=== PATIENT | female | born 1970 | race Caucasian/White ===

== ENCOUNTER 2021-11-10 17:36 | Inpatient (IN) ==
[2021-11-10] MEDS ORDERED: ONDANSETRON INJ 2 MG/ML 2 ML VIAL IV STA (17:51)
--- NOTE | 2021-11-10 17:51 | ED Triage Note ---
Date of Service November 10, 2021 History of Present Illness This patient was briefly evaluated while in triage. An abbreviated physical exam was performed. This patient is a 51-year-old Female with past medical history of mental health illness, allergies, asthma who presents to the ED for evaluation of "lung pain in my left lung". Pt. did have positive Covid-19 test at [facility] earlier today. Pt. having fever, sore throat, nausea, body aches, generalized illness. Pt. reports was positive Covid-19 10/02/2021. Had CXR and covid-[address] [facility]. Concern for worsening Left lung pain as the day has gone on. Physical Exam VITALS: Vitals are noted on the nurse's note and reviewed by myself. GENERAL: This is a 51 year old white female, in no acute distress, nondiaphoretic, well-developed well-nourished. SKIN: No obvious rashes, edema, erythema HEAD: Normocephalic atraumatic. EYES: Conjunctivae without injection, sclerae without icterus. NECK: No JVD. LUNGS: No retractions or accessory muscle use. MUSCULOSKELETAL: Normal gait. NEURO: Patient was alert and oriented to person place and time. No focal neurological deficits. Initial orders for labs and / or imaging were placed and patient was placed in the waiting area until a bed is available. Please see further documentation for the full ED course. MDM / Impression Impression Impression: Hypoxia, Pneumonia : Pneumonia Qualifiers: Pneumonia type: due to unspecified organism Laterality: left Lung location: lower lobe of lung Qualified Code(s): J18.9 - Pneumonia, unspecified organism
[2021-11-10] MEDS ORDERED: SODIUM CHLORIDE 0.9% 1000ML 1,000 ML IV SCH (18:00)
[2021-11-10 18:36] LABS: Hematocrit (blood only) 40.4 % (34.1-44.9); Hemoglobin 13.2 g/dl (12.0-16.0); Mean Corpuscular Hemoglobin 29.5 pg (25.0-34.0); Mean Corpuscular Hgb Conc 32.7 g/dL (32.0-36.0); Mean Corpuscular Volume 90.4 fL (80.0-100.0); Mean Platelet Volume 8.7 fL (9.4-12.3); Platelet Count 204 K/uL (130-400); RDW Coefficient of Variation 14.6 % (11.5-14.5); RDW Standard Deviation 48.2 fL (36.4-46.3); Red Blood Count 4.47 M/uL (3.93-5.22); White Blood Count 17.68 K/ul (4.8-10.8)
[2021-11-10 18:53] LABS: Basophils # (auto) 0.02 K/uL (0-0.2); Basophils % (auto) 0.1 %; Immature Granulocytes # (auto) 0.15 K/uL (0.00-0.02); Immature Granulocytes % (auto) 0.8 %; Monocytes # (auto) 0.79 K/uL (0.24-0.82); Monocytes % (auto) 4.5 %; Neutrophils # (auto) 16.02 K/uL (1.4-6.5); Neutrophils % (auto) 90.6 %
[2021-11-10 18:56] LABS: INR 1.1 (0.9-1.1); Partial Thromboplastin Time 27.7 Seconds (21.0-31.0); Prothrombin Time 11.5 Seconds (9.0-12.0)
[2021-11-10 19:07] LABS: Albumin Globulin Ratio 1.7 (0.9-2); BUN Creatinine Ratio 14.4 (10-20); Bilirubin,Total 0.9 mg/dl (0.2-1.0); Calcium 9.2 mg/dl (8.5-10.1); Creatinine Clr Calc Pharmacy 67.9 ml/min; Est GFR (African American) 72.6 ml/min; Est GFR (Non-African American) 62.6 ml/min; Globulin 2.4 gm/dl (2.5-4.0); Potassium 4.1 mmol/L (3.5-5.1); Total Protein 6.4 gm/dl (6.0-8.3)
[2021-11-10 19:08] LABS: Troponin I High Sensitivity 4.2 pg/ml (0-14)
--- NOTE | 2021-11-10 19:32 | Emergency Department Note ---
History of Present Illness General Chief Complaint: Flu Like Symptoms Stated Complaint: PAIN IN LEFT LUNG, FEVER, HEADACHE, NAUSEA Time Seen by Provider: 11/10/21 19:20 History of Present Illness Provider Complaint: + fever, + cough, + rhinorrhea and + nasal congestion Onset (ago): 1 day(s) Duration: + progressively worsening Severity: moderate Maximum Pain Intensity: 8 Current Pain Intensity: 8 Relieved By: + nothing Exacerbated By: + nothing Description of mucous: + yellow; no bloody Able to tolerate fluids by mouth: Yes Associated symptoms: + fever, + myalgias, + rhinorrhea, + nasal congestion, + cough, + chest pain and + shortness of breath; no stiff neck, no nausea or no dysuria HPI Narrative: Patient reports she went to [place] emergency department where they did a COVID swab and told her she was positive and a chest x-ray told her was negative and then sent her home. She states she does not feel any better so she came to this emergency department. Patient states she had COVID 5 weeks ago so is unsure how she got COVID again so quickly. Home Medications Medication Instructions Recorded Confirmed Type Cbd Extendend Release Tablet 10 mg PO QAM 11/10/21 11/10/21 History albuterol sulfate 90 mcg/actuation 2 puff inhalation Q6 PRN as 11/10/21 11/10/21 History aerosol inhaler directed beclomethasone dipropionate 80 2 inh inhalation BID 11/10/21 11/10/21 History mcg/actuation HFA breath activated aerosol (Qvar RediHaler) benralizumab 30 mg/mL subcutaneous 30 mg subcut .EVERY 2 MONTHS 11/10/21 11/10/21 History syringe (Fasenra) cyclosporine 0.05 % eye drops 1 drp ophthalmic (eye) BID 11/10/21 11/10/21 History (Restasis MultiDose) duloxetine 30 mg capsule,delayed 30 mg PO BID 11/10/21 11/10/21 History release epinephrine 0.3 mg/0.3 mL 0.3 ml IM UD PRN Allergic Reaction 11/10/21 11/10/21 History injection, auto-injector fexofenadine 180 mg tablet 180 mg PO QAM 11/10/21 11/10/21 History (Pilar Allergy) fluticasone 500 mcg-salmeterol 50 1 inh inhalation BID 11/10/21 11/10/21 History mcg/dose blistr powdr for inhalation (Advair Diskus) fluticasone propionate 50 2 spray intranasal DAILY 11/10/21 11/10/21 History mcg/actuation nasal spray,suspension gabapentin 100 mg capsule 300 mg PO HS 11/10/21 11/10/21 History ipratropium 0.5 mg-albuterol 3 mg 3 ml inhalation Q4 PRN as directed 11/10/21 11/10/21 History (2.5 mg base)/3 mL nebulization soln lamotrigine 25 mg tablet (Lamictal) 25 mg PO HS 11/10/21 11/10/21 History linaclotide 290 mcg capsule 290 mcg PO QAM 11/10/21 11/10/21 History (Linzess) lisdexamfetamine 60 mg capsule 60 mg PO QAM 11/10/21 11/10/21 History (Vyvanse) lisinopril 10 mg tablet 10 mg PO QAM 11/10/21 11/10/21 History lurasidone 80 mg tablet (Latuda) 80 mg PO HS 11/10/21 11/10/21 History melatonin 10 mg tablet,extended 10 mg PO HS 11/10/21 11/10/21 History release montelukast 10 mg tablet 10 mg PO HS 11/10/21 11/10/21 History (Singulair) pantoprazole 40 mg granules 40 mg PO BID 11/10/21 11/10/21 History delayed-release for susp in packet (Protonix) pravastatin 40 mg tablet 40 mg PO HS 11/10/21 11/10/21 History sumatriptan succinate 50 mg tablet 50 mg PO UD PRN Migraine Headache 11/10/21 11/10/21 History tiotropium bromide 2.5 2 puff inhalation QAM 11/10/21 11/10/21 History mcg/actuation mist for inhalation (Spiriva Respimat) topiramate 25 mg tablet (Topamax) 25 mg PO AMHS 11/10/21 11/10/21 History Allergies Allergy/AdvReac Type Severity Reaction Status Date / Time Sulfa (Sulfonamide Allergy Unknown hands and Verified 11/10/21 23:41 Antibiotics) feet get itchy Past Med/Surg History Medical History CKD (chronic kidney disease) No pertinent family history Surgical History No pertinent past surgical history Social History Smoking Status: Never smoker Feels Safe at Home: Yes Review of Systems A total of 10 systems reviewed and were otherwise negative Physical Exam Vital Signs: Vital Signs - 24 hr 11/10/21 17:48 11/10/21 17:37 11/10/21 19:37 Temperature 36.7 C Temperature Source Temporal Artery Sc an Pulse Rate 96 H Pulse Rate [Apical ] 104 H 95 H Pulse Rhythm Pulse Rhythm [Apic al] Regular Regular Pulse Strength [Ap ical] Normal Normal Respiratory Rate 20 20 20 Respiratory Effort / Characteristics Non-Labored Non-Labored Respiratory Depth Normal Normal Normal Respiratory Patter n Regular Regular Blood Pressure 118/83 Blood Pressure [Ri ght Arm] 94/54 L 94/54 L Blood Pressure Shanna n 94 Blood Pressure Shanna n [Right Arm] 67 67 Blood Pressure Pos ition Sitting Blood Pressure Pos ition [Right Arm] Left Lateral Left Lateral Pulse Oximetry 98 92 92 Oxygen Delivery Me thod Room Air Room Air Room Air Oxygen Flow Rate Sepsis Recent Feve r Within 48 Hours Yes Sepsis New/Unexpla ined Change in Men raymundo Status No Sepsis Action Take n by Nursing No Action Required 11/10/21 17:51 11/10/21 22:40 11/10/21 23:12 Temperature 38.9 C H Temperature Source Temporal Artery Sc an Pulse Rate 95 H Pulse Rate [Apical ] 101 H 95 H Pulse Rhythm Regular Pulse Rhythm [Apic al] Regular Pulse Strength [Ap ical] Normal Respiratory Rate 22 22 22 Respiratory Effort / Characteristics Non-Labored Respiratory Depth Normal Normal Respiratory Patter n Regular Blood Pressure Blood Pressure [Ri ght Arm] 92/53 L Blood Pressure Shanna n Blood Pressure Shanna n [Right Arm] 66 Blood Pressure Pos ition Blood Pressure Pos ition [Right Arm] Pulse Oximetry 95 88 L 96 Oxygen Delivery Me thod Room Air Room Air Nasal Cannula Oxygen Flow Rate 2 Sepsis Recent Feve r Within 48 Hours Sepsis New/Unexpla ined Change in Men raymundo Status Sepsis Action Take n by Nursing 11/10/21 23:21 Temperature Temperature Source Pulse Rate Pulse Rate [Apical ] Pulse Rhythm Pulse Rhythm [Apic al] Pulse Strength [Ap ical] Respiratory Rate 18 Respiratory Effort / Characteristics Non-Labored Sponta neous Respiratory Depth Respiratory Patter n Blood Pressure Blood Pressure [Ri ght Arm] Blood Pressure Shanna n Blood Pressure Shanna n [Right Arm] Blood Pressure Pos ition Blood Pressure Pos ition [Right Arm] Pulse Oximetry Oxygen Delivery Me thod Nasal Cannula Oxygen Flow Rate Sepsis Recent Feve r Within 48 Hours Sepsis New/Unexpla ined Change in Men raymundo Status Sepsis Action Take n by Nursing Physical Exam: Physical Exam GENERAL: She is oriented to person, place, and time. She appears well-developed and well-nourished. She does not appear distressed. HENT: Exam performed. -Head: Normocephalic and atraumatic. -Right Ear: External ear normal. No mastoid tenderness. -Left Ear: External ear normal. No mastoid tenderness. -Mouth/Throat: The oropharynx is clear and moist. No trismus in the jaw. No dental abscesses or uvula swelling. No oropharyngeal exudate or tonsillar abscesses. EYES: Conjunctivae and EOM are normal. Pupils are equal, round, and reactive to light. Right eye exhibits no discharge. Left eye exhibits no discharge. No scleral icterus. NECK: Normal range of motion. Neck supple. No JVD present. No spinous process tenderness present. No carotid bruit present. No rigidity. No tracheal deviation and normal range of motion present. No Brudzinski's sign and no Kernig's sign noted. CV: Normal rate, regular rhythm, normal heart sounds and intact distal pulses. There is no peripheral edema. Palpable radial pulses bue. PULM/CHEST: Effort normal and breath sounds normal. No respiratory distress. No stridor. She has no wheezes. She has no rales. -Chest Wall: She exhibits no tenderness. ABD: The abdomen is soft. Bowel sounds are normal. She has no distension. No mass is present. There is no tenderness. There is no rebound, no guarding, no Grady's sign and no tenderness at McBurney's point. Rovsig negative MUSC/SKEL: Normal range of motion. There is no peripheral edema, tenderness or deformity. LYMPH: No cervical adenopathy. NEURO: She is alert and oriented to person, place, and time. She has normal strength. No cranial nerve deficit or sensory deficit. Coordination and gait normal. GCS eye subscore is 4. GCS verbal subscore is 5. GCS motor subscore is 6. Cerebellar tests wnl. SKIN: Skin is warm and dry. She is not diaphoretic. PSYCH: She has a normal mood and affect. Behavior is normal. Judgment and thought content normal. Course Course 1919: The patient was evaluated in room C1. A complete history and physical exam was performed Cardiac monitoring: An order was placed for continuous cardiac monitoring. The monitor shows a rate of 90 with sinus rhythm 2245: Nursing for me that the patient's oxygen saturations are dropping. The patient was found to be febrile hypotensive and hypoxic. 2 L nasal cannula supplied the patient which improved her oxygen saturation. Repeat fluid bolus ordered for the patient. Patient's COVID PCR is negative. Leukocytosis 17. Imaging shows a left sided pneumonia. Antibiotics first Started on the patient. [facility]. Administered Medications Discontinued Medications Sodium Chloride (Nss 1000ml) 1,000 mls @ 999 mls/hr IV .Q1H1M TONNY Stop: 11/10/21 19:00 Last Infusion: 11/10/21 21:09 Dose: 0 mls/hr Documented By: Admin: 11/10/21 20:04 Dose: 999 mls/hr Documented By: MELISSA Sodium Chloride (Nss 1000ml) 1,000 mls @ 999 mls/hr IV .Q1H1M ONE Stop: 11/10/21 20:40 Last Infusion: 11/10/21 21:09 Dose: 0 mls/hr Documented By: Admin: 11/10/21 20:04 Dose: 999 mls/hr Documented By: MELISSA Sodium Chloride (Nss 1000ml) 500 mls @ 999 mls/hr IV .Q31M ONE Stop: 11/10/21 23:24 Last Admin: 11/10/21 23:16 Dose: 999 mls/hr Documented By: ERICK Ioversol (Optiray 300 500ml) 77 ml IV ONCE ONE Stop: 11/10/21 19:46 Last Admin: 11/10/21 19:45 Dose: 77 ml Documented By: MAC Ipratropium Fleming (Ipratropium Fleming Neb Soln 0.02% 2.5 Ml Vial) 0.5 mg INH NOW STA Stop: 11/10/21 23:04 Last Admin: 11/10/21 23:21 Dose: 0.5 mg Documented By: BRB Levalbuterol HCl (Levalbuterol 1.25mg/0.5ml Neb) 1.25 mg INH NOW STA Stop: 11/10/21 23:04 Last Admin: 11/10/21 23:21 Dose: 1.25 mg Documented By: BRB Ondansetron HCl (Ondansetron Inj 2 Mg/Ml 2 Ml Vial) 4 mg IV NOW STA Stop: 11/10/21 17:52 Last Admin: 11/10/21 20:05 Dose: 4 mg Documented By: RDD Ondansetron HCl (Ondansetron Inj 2 Mg/Ml 2 Ml Vial) Confirm Administered Dose 4 mg .ROUTE .STK-MED ONE Stop: 11/10/21 20:06 Last Admin: 11/10/21 20:33 Dose: Not Given Documented By: RDMyrna Medical Decision Making Laboratory Data Result diagrams: 11/10/21 18:20 11/10/21 18:20 Lab Results 11/10/21 11/10/21 11/10/21 Range/Units 18:20 18:20 18:20 WBC 17.68 H (4.8-10.8) K/ul RBC 4.47 (3.93-5.22) M/uL Hgb 13.2 (12.0-16.0) g/dl Hct 40.4 (34.1-44.9) % MCV 90.4 (80.0-100.0) fL MCH 29.5 (25.0-34.0) pg MCHC 32.7 (32.0-36.0) g/dL RDW Std Deviation 48.2 H (36.4-46.3) fL RDW Coeff of Mariia 14.6 H (11.5-14.5) % Plt Count 204 (130-400) K/uL MPV 8.7 L (9.4-12.3) fL Immature Gran % (Auto) 0.8 % Neut % (Auto) 90.6 % Lymph % (Auto) 4.0 % [place] % (Auto) 4.5 % Eos % (Auto) 0.0 % Baso % (Auto) 0.1 % Neut # (Auto) 16.02 H (1.4-6.5) K/uL Lymph # (Auto) 0.70 L (1.2-3.4) K/uL [place] # (Auto) 0.79 (0.24-0.82) K/uL Eos # (Auto) 0.00 (0-0.50) K/uL Baso # (Auto) 0.02 (0-0.2) K/uL Immature Gran # (Auto) 0.15 H (0.00-0.02) K/uL PT 11.5 (9.0-12.0) Seconds INR 1.1 (0.9-1.1) APTT 27.7 (21.0-31.0) Seconds PTT Ratio 1.0 Sodium 135 L (136-145) mmol/L Potassium 4.1 (3.5-5.1) mmol/L Chloride 103 (98-107) mmol/L Carbon Dioxide 24 (21-32) mmol/L Anion Gap 8 (3-11) BUN 15 (6-23) mg/dl Creatinine 1.04 (0.6-1.2) mg/dl Est Cr Clr Drug Dosing 67.9 ml/min Est GFR ( Amer) 72.6 ml/min Est GFR (Non-Af Amer) 62.6 ml/min BUN/Creatinine Ratio 14.4 (10-20) Glucose 122 H (70-99(Fasting)) mg/dl Calcium 9.2 (8.5-10.1) mg/dl Total Bilirubin 0.9 (0.2-1.0) mg/dl AST 17 (13-39) U/L ALT 16 (7-52) U/L Alkaline Phosphatase 52 (34-104) U/L Troponin I High Sens 4.2 (0-14) pg/ml Total Protein 6.4 (6.0-8.3) gm/dl Albumin 4.0 (3.4-5.0) gm/dl Globulin 2.4 L (2.5-4.0) gm/dl Albumin/Globulin Ratio 1.7 (0.9-2) SARS-CoV-2 (PCR) (Negative) 11/10/21 Range/Units 21:00 WBC (4.8-10.8) K/ul RBC (3.93-5.22) M/uL Hgb (12.0-16.0) g/dl Hct (34.1-44.9) % MCV (80.0-100.0) fL MCH (25.0-34.0) pg MCHC (32.0-36.0) g/dL RDW Std Deviation (36.4-46.3) fL RDW Coeff of Mariia (11.5-14.5) % Plt Count (130-400) K/uL MPV (9.4-12.3) fL Immature Gran % (Auto) % Neut % (Auto) % Lymph % (Auto) % [place] % (Auto) % Eos % (Auto) % Baso % (Auto) % Neut # (Auto) (1.4-6.5) K/uL Lymph # (Auto) (1.2-3.4) K/uL [place] # (Auto) (0.24-0.82) K/uL Eos # (Auto) (0-0.50) K/uL Baso # (Auto) (0-0.2) K/uL Immature Gran # (Auto) (0.00-0.02) K/uL PT (9.0-12.0) Seconds INR (0.9-1.1) APTT (21.0-31.0) Seconds PTT Ratio Sodium (136-145) mmol/L Potassium (3.5-5.1) mmol/L Chloride (98-107) mmol/L Carbon Dioxide (21-32) mmol/L Anion Gap (3-11) BUN (6-23) mg/dl Creatinine (0.6-1.2) mg/dl Est Cr Clr Drug Dosing ml/min Est GFR ( Amer) ml/min Est GFR (Non-Af Amer) ml/min BUN/Creatinine Ratio (10-20) Glucose (70-99(Fasting)) mg/dl Calcium (8.5-10.1) mg/dl Total Bilirubin (0.2-1.0) mg/dl AST (13-39) U/L ALT (7-52) U/L Alkaline Phosphatase (34-104) U/L Troponin I High Sens (0-14) pg/ml Total Protein (6.0-8.3) gm/dl Albumin (3.4-5.0) gm/dl Globulin (2.5-4.0) gm/dl Albumin/Globulin Ratio (0.9-2) SARS-CoV-2 (PCR) NEGATIVE (Negative) Imaging Data Radiologist's Impression: Chest CTA 11/10/21 17:51 CT ANGIOGRAPHY OF THE CHEST, PULMONARY EMBOLUS PROTOCOL CLINICAL HISTORY: Covid-19, left side chest pain, shortness of breath COMPARISON STUDY: No previous studies for comparison. TECHNIQUE: Following IV administration of 77 mL of Optiray, helical axial images of the chest were obtained utilizing the pulmonary embolus protocol. Maximal i ntensity projections and sagittal and coronal reformats were viewed on an independent 3D workstation. IV contrast was administered without complication. Automated exposure control was utilized for the study. A dose lowering technique was utilized adhering to the principles of ALARA. CT DOSE: 525.52 mGy.cm FINDINGS: No pulmonary emboli are identified. There is no thoracic aortic dissection. Size of the heart is normal. There is no pericardial effusion. Note is made of dense left lower lobe consolidation. There is mild left lower lobe volume loss. No central obstructing mass is identified. No cavitation is present. There is no associated pleural effusion. Mild airspace opacity within the lingula is also noted. Right lung is clear. No acute fracture or suspicious lesion within the visualized bony thorax. Size of the spleen is at the upper limits of normal. IMPRESSION: 1. No pulmonary emboli identified. 2. Dense left lower lobe consolidation with mild lower lobe volume loss. This is highly suggestive of pneumonia. Mild airspace opacity within the lingula. Radiographic follow-up to ensure resolution is recommended. ACT 112: Negative or not required by law. Electronically signed by: Ryan Grimes M.D. 11/10/2021 8:16 PM ECG Data Indication: SOB/dyspnea Rate (beats per minute): 95 Rhythm: normal sinus Findings: no ST depression, no ST elevation or no prolonged QT MDM Narrative 1920: The patient was evaluated in room C1. A complete history and physical exam was performed Cardiac monitoring: An order was placed for continuous cardiac monitoring. The monitor shows a rate of 90 with sinus rhythm 2245: Nursing for me that the patient's oxygen saturations are dropping. The patient was found to be febrile hypotensive and hypoxic. 2 L nasal cannula supplied the patient which improved her oxygen saturation. Repeat fluid bolus ordered for the patient. Patient's COVID PCR is negative. Leukocytosis 17. Imaging shows a left sided pneumonia. Antibiotics first Started on the patient. [facility]. Impression & Plan Hypoxia, Pneumonia Critical Care Time Prolonged Care Time Prolonged Care Time: Yes Total Prolonged Care Time: 50 I have personally spent greater than 50 minutes of critical care time in the direct management of this patient. This includes bedside care, interpretation of diagnostic studies, and testing, discussion with consultants, patient, and family members, and other required patient management activities. This 50 minutes is in excess of all separately billable procedures. Discharge Plan Visit Data Chief Complaint: Flu Like Symptoms Stated Complaint: PAIN IN LEFT LUNG, FEVER, HEADACHE, NAUSEA ED Provider: James Mcgee Discharge Problem: Hypoxia, Pneumonia Patient Disposition: Admitted As Inpatient Forms Stand Alone Forms: My [facility] Prescriptions Prescriptions: No Action topiramate [Topamax] 25 mg tablet 25 mg PO AMHS lamotrigine [Lamictal] 25 mg tablet 25 mg PO HS lisinopril 10 mg tablet 10 mg PO QAM montelukast [Singulair] 10 mg tablet 10 mg PO HS gabapentin 100 mg capsule 300 mg PO HS Vyvanse 60 mg capsule 60 mg PO QAM ipratropium-albuterol 0.5 mg-3 mg(2.5 mg base)/3 mL solution for nebulization 3 ml INHALATION Q4 PRN (Reason: as directed) pravastatin 40 mg tablet 40 mg PO HS fexofenadine [Pilar Allergy] 180 mg tablet 180 mg PO QAM albuterol sulfate 90 mcg/actuation HFA aerosol inhaler 2 puff INHALATION Q6 PRN (Reason: as directed) fluticasone propionate 50 mcg/actuation spray,suspension 2 spray INTRANASAL DAILY pantoprazole [Protonix] [address] for susp in packet 40 mg PO BID Latuda 80 mg tablet 80 mg PO HS Linzess 290 mcg capsule 290 mcg PO QAM Spiriva Respimat 2.5 mcg/actuation mist 2 puff INHALATION QAM Restasis MultiDose 0.05 % drops 1 drp ophthalmic (eye) BID Qvar RediHaler 80 mcg/actuation HFA aerosol breath activated 2 inh INHALATION BID sumatriptan succinate 50 mg tablet 50 mg PO UD PRN (Reason: Migraine Headache) epinephrine 0.3 mg/0.3 mL auto-injector 0.3 ml IM UD PRN (Reason: Allergic Reaction) duloxetine 30 mg capsule,delayed release(DR/EC) 30 mg PO BID fluticasone propion-salmeterol [Advair Diskus] 500-50 mcg/dose Blister With Device 1 inh INHALATION BID Fasenra 30 mg/mL Syringe 30 mg SUBCUT .EVERY 2 MONTHS Rx Instructions: due end of october 2021 melatonin 10 mg Tablet Extended Release 10 mg PO HS Cbd Extendend Release Tablet 10 mg PO QAM Referrals Referrals: Lino Huynh [Primary Care Provider] -
[2021-11-10] MEDS ORDERED: SODIUM CHLORIDE 0.9% 1000ML 1,000 ML IV ONE (19:40)
[2021-11-10] MEDS ORDERED: OPTIRAY 300 500mL IV ONE (19:45)
[2021-11-10] MEDS ORDERED: ONDANSETRON INJ 2 MG/ML 2 ML VIAL ONE (20:05)
--- NOTE | 2021-11-10 20:20 | CT Scan Report ---
CT ANGIOGRAPHY OF THE CHEST, PULMONARY EMBOLUS PROTOCOL CLINICAL HISTORY: Covid-19, left side chest pain, shortness of breath COMPARISON STUDY: No previous studies for comparison. TECHNIQUE: Following IV administration of 77 mL of Optiray, helical axial images of the chest were ob tained utilizing the pulmonary embolus protocol. Maximal intensity projections and sagittal and eve nal reformats were viewed on an independent 3D workstation. IV contrast was administered without com plication. Automated exposure control was utilized for the study. A dose lowering technique was uti lized adhering to the principles of ALARA. CT DOSE: 525.52 mGy.cm FINDINGS: No pulmonary emboli are identified. There is no thoracic aortic dissection. Size of the he art is normal. There is no pericardial effusion. Note is made of dense left lower lobe consolidation. There is mild left lower lobe volume loss. No central obstructing mass is identified. No cavitation is present. There is no associated pleural effusion. Mild airspace opacity within the lingula is also noted. Right lung is clear. No acute fracture or suspicious lesion within the visualized bony thorax . Size of the spleen is at the upper limits of normal. IMPRESSION: 1. No pulmonary emboli identified. 2. Dense left lower lobe consolidation with mild lower lobe volume loss. This is highly suggestive of pneumonia. Mild airspace opacity within the lingula. Radiographic follow-up to ensure resolution is recommended. ACT 112: Negative or not required by law. Electronically signed by: Ryan Grimes M.D. 11/10/2021 8:16 PM
[2021-11-10] MEDS ORDERED: SODIUM CHLORIDE 0.9% 1000ML 500 ML IV ONE (22:54)
[2021-11-10] MEDS ORDERED: AZITHROMYCIN 250 MG TAB PO ONE (22:54)
[2021-11-10] MEDS ORDERED: cefTRIAXone SODIUM 1,000 MG/50 ML BAG IV STA (22:54)
[2021-11-10] MEDS ORDERED: SODIUM CHLORIDE 0.9% 500 ML IV SCH (23:00)
[2021-11-10] MEDS ORDERED: XOPENEX/ATROVENT 1.25mg/0.5MG NEB COMBO NEB STA (23:03)
[2021-11-10] MEDS ORDERED: IPRATROPIUM BROMIDE NEB SOLN 0.02% 2.5 ML VIAL INH STA (23:03)
[2021-11-10] MEDS ORDERED: LEVALBUTEROL 1.25MG/0.5ML NEB INH STA (23:03)
[2021-11-10] MEDS ORDERED: ACETAMINOPHEN 325 MG TAB PO STA (23:35)
[2021-11-11 00:06] LABS: Base Excess VBG -3.8 mEq/L; HCO3 VBG 21 mmol/L; Oxygen Saturation VBG 68.7 %; PCO2 VBG 35 mmHg (38-50); PO2 VBG 36 mmHg; pH VBG 7.38 (7.36-7.41)
[2021-11-11 00:16] LABS: Appearance Urine Clear (Clear); Bacteria Urine Automated Negative (Negative); Bilirubin Urine Negative (Negative); Blood Urine Negative (Negative); Cast Urine Automated 0 /lpf (0-5); Color Urine Yellow; Epithelial Cell Urine Auto >30 /lpf (0-5); Glucose Urine UA Negative (Negative); Ketones Urine Negative (Negative); Leukocyte Esterase Urine Trace (Negative); Nitrite Urine Negative (Negative); Protein Urine Negative (Negative); RBC Urine Automated 0-4 /hpf (0-4); Specific Gravity Urine 1.038 (1.000-1.030); Urobilinogen Urine Negative (Negative); pH Urine 7.5 (4.5-7.5)
[2021-11-11] MEDS: MAGNESIUM SULFATE / D5W 1 GM/100 ML BAG IV SCH ×3 (01:14→05:29)
[2021-11-11] MEDS ORDERED: ACETAMINOPHEN 325 MG TAB PO PRN (01:50)
[2021-11-11] MEDS ORDERED: PROMETHAZINE HCL 12.5 MG in SODIUM CHLORIDE 0.9% 50 ML IV PRN (01:50)
[2021-11-11] MEDS ORDERED: XOPENEX/ATROVENT 1.25mg/0.5MG NEB COMBO NEB PRN (02:12)
[2021-11-11] MEDS ORDERED: IPRATROPIUM BROMIDE NEB SOLN 0.02% 2.5 ML VIAL INH PRN (02:15)
[2021-11-11] MEDS ORDERED: LEVALBUTEROL 1.25MG/0.5ML NEB INH PRN (02:15)
[2021-11-11] MEDS ORDERED: SODIUM CHLORIDE 0.9% 1000ML 1,000 ML IV ONE (04:10)
--- NOTE | 2021-11-11 04:10 | History & Physical Report ---
Date of Service November 11, 2021 Assessment & Plan (1) Severe sepsis: Plan: SIRS plus hypoxemia Secondary to community-acquired pneumonia Bronchial asthma, patient without her usual wheezing symptoms as per her account hypertension, BP on the lower side bipolar disorder, at baseline on multiple medications migraine, headache somewhat worse than usual due to illness as per patient Hyperglycemia rule out DM past tobacco abuse Medical telemetry Supplemental O2 Baseline ABG CS, Ceftriaxone and Doxycycline IVF, hold lisinopril for now until patient BP improved Check hemoglobin A1c DVT prophylaxis. Lovenox subcu Full code Text document was generated using DocDoc voice recognition software. It may contain grammatical or spelling errors. Kindly contact undersigned for clarification of any documentation item in question. Admission and Anticipated Discharge Date Admission Date: November 11, 2021 History of Present Illness Chief Complaint: Worsening cough, shortness of breath Primary Care Provider: Lino Cai of [facility] as per patient History obtained from patient and records. Medical history significant for hypertension, bipolar disorder, bronchial asthma , migraine, past tobacco abuse. Patient started not feeling well yesterday, cough productive of junky sputum associated with headaches. Some shortness of breath with chest pain from coughing. No aspiration. Not as much wheezing as usual asthma attack. Usual migraine headache. Patient not sure about sick contacts due to her work at the [employer]. Patient has not received COVID-19 vaccination but was intending to get her first shot today. O2 sats 80s at 1 point during ER stay. Patient given Ceftriaxone and Azithromycin at the ER for pneumonia. Medical History as above Surgical History : Sinus surgery, tonsillectomy Family History : Hypertension Personal/Social history : Past tobacco abuse, no EtOH intake, [employer] employee Allergies Allergy/AdvReac Type Severity Reaction Status Date / Time Sulfa (Sulfonamide Allergy Unknown hands and Verified 11/10/21 23:41 Antibiotics) feet get itchy Home Medications Medication Instructions Recorded Confirmed Type Cbd Extendend Release Tablet 10 mg PO QAM 11/10/21 11/10/21 History albuterol sulfate 90 mcg/actuation 2 puff inhalation Q6 PRN as 11/10/21 11/10/21 History aerosol inhaler directed beclomethasone dipropionate 80 2 inh inhalation BID 11/10/21 11/10/21 History mcg/actuation HFA breath activated aerosol (Qvar RediHaler) benralizumab 30 mg/mL subcutaneous 30 mg subcut .EVERY 2 MONTHS 11/10/2111/10 History syringe (Fasenra) cyclosporine 0.05 % eye drops 1 drp ophthalmic (eye) BID 11/10/21 11/10/21 History (Restasis MultiDose) duloxetine 30 mg capsule,delayed 30 mg PO BID 11/10/21 11/10/21 History release epinephrine 0.3 mg/0.3 mL 0.3 ml IM UD PRN Allergic Reaction 11/10/21 11/10/21 History injection, auto-injector fexofenadine 180 mg tablet 180 mg PO QAM 11/10/21 11/10/21 History (Pilar Allergy) fluticasone 500 mcg-salmeterol 50 1 inh inhalation BID 11/10/21 11/10/21 History mcg/dose blistr powdr for inhalation (Advair Diskus) fluticasone propionate 50 2 spray intranasal DAILY 11/10/21 11/10/21 History mcg/actuation nasal spray,suspension gabapentin 100 mg capsule 300 mg PO HS 11/10/21 11/10/21 History ipratropium 0.5 mg-albuterol 3 mg 3 ml inhalation Q4 PRN as directed 11/10/21 11/10/21 History (2.5 mg base)/3 mL nebulization soln lamotrigine 25 mg tablet (Lamictal) 25 mg PO HS 11/10/21 11/10/21 History linaclotide 290 mcg capsule 290 mcg PO QAM 11/10/21 11/10/21 History (Linzess) lisdexamfetamine 60 mg capsule 60 mg PO QAM 11/10/21 11/10/21 History (Vyvanse) lisinopril 10 mg tablet 10 mg PO QAM 11/10/21 11/10/21 History lurasidone 80 mg tablet (Latuda) 80 mg PO HS 11/10/21 11/10/21 History melatonin 10 mg tablet,extended 10 mg PO HS 11/10/21 11/10/21 History release montelukast 10 mg tablet 10 mg PO HS 11/10/21 11/10/21 History (Singulair) pantoprazole 40 mg granules 40 mg PO BID 11/10/21 11/10/21 History delayed-release for susp in packet (Protonix) pravastatin 40 mg tablet 40 mg PO HS 11/10/21 11/10/21 History sumatriptan succinate 50 mg tablet 50 mg PO UD PRN Migraine Headache 11/10/21 11/10/21 History tiotropium bromide 2.5 2 puff inhalation QAM 11/10/21 11/10/21 History mcg/actuation mist for inhalation (Spiriva Respimat) topiramate 25 mg tablet (Topamax) 25 mg PO AMHS 11/10/21 11/10/21 History Past Med/Surg History Medical History CKD (chronic kidney disease) No pertinent family history Surgical History No pertinent past surgical history Social History Smoking Status: Former smoker Hx Alcohol Use: No Hx Substance Use: No Preferred Language: Danish Communication Ability: Effective 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 Beliefs That Will Affect Care: None and Muslim Muslim Beliefs: orthodox Current Living Situation: Spouse Other Information That Helps Us Care for You: No Feels Safe at Home: Yes Safety Concerns: Feels Safe At This Time Review of Systems Review of Systems: As per HPI, all other systems reviewed and negative Physical Exam Physical Exam: GENERAL: Slightly uncomfortable, obese, looks older than stated age, no respiratory distress SKIN: Normal color, warm HEENT: [place] palpebral conjunctivae, no ptosis, dry buccal mucosa, nasal cannula in place NECK : Supple, short neck, no tenderness CHEST : Decreased breath sounds, no tenderness HEART : RRR, no obvious murmurs ABDOMEN: Some distention, nontender EXTREMITIES : Minimal LE swelling, no LE tenderness, no other conspicuous deformities noted NEUROLOGIC : Coherent, no facial asymmetry, no other gross focality Results & Data Results & Data ([facility]) Vital Signs (Past 12 Hours) Vital Signs Temp Pulse Pulse Pulse Resp BP BP 11/11/21 01:48 93 H 11/11/21 02:01 37.0 C 90 22 11/11/21 01:53 11/11/21 01:53 37.0 C 90 22 98/63 L 11/11/21 01:00 37.8 C H 93 H 22 112/54 L 11/10/21 23:21 18 11/10/21 23:12 38.9 C H 95 H 22 11/10/21 22:40 101 H 22 11/10/21 17:51 95 H 22 11/10/21 19:37 95 H 20 11/10/21 17:37 104 H 20 11/10/21 17:48 36.7 C 96 H 20 118/83 BP Pulse Ox O2 Del Method O2 Flow Rate 11/11/21 01:48 11/11/21 02:01 98/63 L 94 Nasal Cannula 2 11/11/21 01:53 Nasal Cannula 2 11/11/21 01:53 94 Nasal Cannula 2 11/11/21 01:00 96 Nasal Cannula 2 11/10/21 23:21 Nasal Cannula 11/10/21 23:12 92/53 L 96 Nasal Cannula 2 11/10/21 22:40 88 L Room Air 11/10/21 17:51 95 Room Air 11/10/21 19:37 94/54 L 92 Room Air 11/10/21 17:37 94/54 L 92 Room Air 11/10/21 17:48 98 Room Air Laboratory Results Laboratory Results WBC 17.68 K/ul (4.8-10.8) H 11/10/21 18:20 RBC 4.47 M/uL (3.93-5.22) 11/10/21 18:20 Hgb 13.2 g/dl (12.0-16.0) 11/10/21 18:20 Hct 40.4 % (34.1-44.9) 11/10/21 18:20 MCV 90.4 fL (80.0-100.0) 11/10/21 18:20 MCH 29.5 pg (25.0-34.0) 11/10/21 18:20 MCHC 32.7 g/dL (32.0-36.0) 11/10/21 18:20 RDW Std Deviation 48.2 fL (36.4-46.3) H 11/10/21 18:20 RDW Coeff of Mariia 14.6 % (11.5-14.5) H 11/10/21 18:20 Plt Count 204 K/uL (130-400) 11/10/21 18:20 MPV 8.7 fL (9.4-12.3) L 11/10/21 18:20 Immature Gran % (Auto) 0.8 % 11/10/21 18:20 Neut % (Auto) 90.6 % 11/10/21 18:20 Lymph % (Auto) 4.0 % 11/10/21 18:20 [place] % (Auto) 4.5 % 11/10/21 18:20 Eos % (Auto) 0.0 % 11/10/21 18:20 Baso % (Auto) 0.1 % 11/10/21 18:20 Neut # (Auto) 16.02 K/uL (1.4-6.5) H 11/10/21 18:20 Lymph # (Auto) 0.70 K/uL (1.2-3.4) L 11/10/21 18:20 [place] # (Auto) 0.79 K/uL (0.24-0.82) 11/10/21 18:20 Eos # (Auto) 0.00 K/uL (0-0.50) 11/10/21 18:20 Baso # (Auto) 0.02 K/uL (0-0.2) 11/10/21 18:20 Immature Gran # (Auto) 0.15 K/uL (0.00-0.02) H 11/10/21 18:20 PT 11.5 Seconds (9.0-12.0) 11/10/21 18:20 INR 1.1 (0.9-1.1) 11/10/21 18:20 APTT 27.7 Seconds (21.0-31.0) 11/10/21 18:20 PTT Ratio 1.0 11/10/21 18:20 VBG pH 7.38 (7.36-7.41) 11/10/21 23:42 VBG pCO2 35 mmHg (38-50) L 11/10/21 23:42 VBG pO2 36 mmHg 11/10/21 23:42 VBG HCO3 21 mmol/L 11/10/21 23:42 VBG O2 Saturation 68.7 % 11/10/21 23:42 VBG Base Excess -3.8 mEq/L 11/10/21 23:42 Sodium 135 mmol/L (136-145) L 11/10/21 18:20 Potassium 4.1 mmol/L (3.5-5.1) 11/10/21 18:20 Chloride 103 mmol/L (98-107) 11/10/21 18:20 Carbon Dioxide 24 mmol/L (21-32) 11/10/21 18:20 Anion Gap 8 (3-11) 11/10/21 18:20 BUN 15 mg/dl (6-23) 11/10/21 18:20 Creatinine 1.04 mg/dl (0.6-1.2) 11/10/21 18:20 Est Cr Clr Drug Dosing 67.9 ml/min 11/10/21 18:20 Est GFR ( Amer) 72.6 ml/min 11/10/21 18:20 Est GFR (Non-Af Amer) 62.6 ml/min 11/10/21 18:20 BUN/Creatinine Ratio 14.4 (10-20) 11/10/21 18:20 Glucose 122 mg/dl (70-99(Fasting)) H 11/10/21 18:20 POC Glucose 150 mg/dl (70-99) H 11/11/21 01:51 Lactate 1.0 mmol/L (0.4-2.0) 11/10/21 23:55 Calcium 9.2 mg/dl (8.5-10.1) 11/10/21 18:20 Magnesium 1.3 mg/dl (1.7-2.4) L 11/10/21 23:55 Total Bilirubin 0.9 mg/dl (0.2-1.0) 11/10/21 18:20 AST 17 U/L (13-39) 11/10/21 18:20 ALT 16 U/L (7-52) 11/10/21 18:20 Alkaline Phosphatase 52 U/L (34-104) 11/10/21 18:20 Troponin I High Sens 4.2 pg/ml (0-14) 11/10/21 18:20 Total Protein 6.4 gm/dl (6.0-8.3) 11/10/21 18:20 Albumin 4.0 gm/dl (3.4-5.0) 11/10/21 18:20 Globulin 2.4 gm/dl (2.5-4.0) L 11/10/21 18:20 Albumin/Globulin Ratio 1.7 (0.9-2) 11/10/21 18:20 Procalcitonin 1.93 ng/ml (0-0.5) H 11/10/21 23:55 TSH 0.986 uIu/ml (0.300-4.500) 11/10/21 23:55 Urine Color Yellow 11/10/21 23:10 Urine Appearance Clear (Clear) 11/10/21 23:10 Urine pH 7.5 (4.5-7.5) 11/10/21 23:10 Ur Specific [place] 1.038 (1.000-1.030) H 11/10/21 23:10 Urine Protein Negative (Negative) 11/10/21 23:10 Urine Glucose (UA) Negative (Negative) 11/10/21 23:10 Urine Ketones Negative (Negative) 11/10/21 23:10 Urine Blood Negative (Negative) 11/10/21 23:10 Urine Nitrite Negative (Negative) 11/10/21 23:10 Urine Bilirubin Negative (Negative) 11/10/21 23:10 Urine Urobilinogen Negative (Negative) 11/10/21 23:10 Ur Leukocyte Esterase Trace (Negative) H 11/10/21 23:10 Urine WBC (Auto) 1-5 /hpf (0-5) 11/10/21 23:10 Urine RBC (Auto) 0-4 /hpf (0-4) 11/10/21 23:10 U Hyaline Cast (Auto) 0 /lpf (0-5) 11/10/21 23:10 U Epithel Cells (Auto) >30 /lpf (0-5) H 11/10/21 23:10 Urine Bacteria (Auto) Negative (Negative) 11/10/21 23:10 [place] < 0.1 mmol/L (0.6-1.2) L 11/10/21 23:55 SARS-CoV-2 (PCR) NEGATIVE (Negative) 11/10/21 21:00 Impressions Chest CTA 11/10/21 17:51 CT ANGIOGRAPHY OF THE CHEST, PULMONARY EMBOLUS PROTOCOL CLINICAL HISTORY: Covid-19, left side chest pain, shortness of breath COMPARISON STUDY: No previous studies for comparison. TECHNIQUE: Following IV administration of 77 mL of Optiray, helical axial images of the chest were obtained utilizing the pulmonary embolus protocol. Maximal intensity projections and sagittal and coronal reformats were viewed on an independent 3D workstation. IV contrast was administered without complication. Automated exposure control was utilized for the study. A dose lowering technique was utilized adhering to the principles of ALARA. CT DOSE: 525.52 mGy.cm FINDINGS: No pulmonary emboli are identified. There is no thoracic aortic dissection. Size of the heart is normal. There is no pericardial effusion. Note is made of dense left lower lobe consolidation. There is mild left lower lobe volume loss. No central obstructing mass is identified. No cavitation is present. There is no associated pleural effusion. Mild airspace opacity within the lingula is also noted. Right lung is clear. No acute fracture or suspicious lesion within the visualized bony thorax. Size of the spleen is at the upper limits of normal. IMPRESSION: 1. No pulmonary emboli identified. 2. Dense left lower lobe consolidation with mild lower lobe volume loss. This is highly suggestive of pneumonia. Mild airspace opacity within the lingula. Radiographic follow-up to ensure resolution is recommended. ACT 112: Negative or not required by law. Electronically signed by: Ryan Grimes M.D. 11/10/2021 8:16 PM Diagnostic Findings EKG as per my interpretation : Rate 95, NSR, normal axis, diffuse T wave abnormalities Code Status & VTE Plan VTE Prophylaxis Plan VTE Prophylaxis will be ordered: Yes
[2021-11-11 06:26] LABS: Basophils # (auto) 0.02 K/uL (0-0.2); Basophils % (auto) 0.1 %; Hemoglobin 11.3 g/dl (12.0-16.0); Immature Granulocytes # (auto) 0.56 K/uL (0.00-0.02); Immature Granulocytes % (auto) 2.9 %; Lymphocytes % (auto) 6.7 %; Mean Corpuscular Hemoglobin 29.4 pg (25.0-34.0); Mean Corpuscular Hgb Conc 32.3 g/dL (32.0-36.0); Mean Corpuscular Volume 90.9 fL (80.0-100.0); Mean Platelet Volume 9.1 fL (9.4-12.3); Monocytes # (auto) 0.99 K/uL (0.24-0.82); Monocytes % (auto) 5.1 %; Neutrophils # (auto) 16.56 K/uL (1.4-6.5); Neutrophils % (auto) 85.2 %; Platelet Count 205 K/uL (130-400); RDW Coefficient of Variation 14.6 % (11.5-14.5); RDW Standard Deviation 48.7 fL (36.4-46.3); Red Blood Count 3.85 M/uL (3.93-5.22); White Blood Count 19.43 K/ul (4.8-10.8)
[2021-11-11 06:34] LABS: Creatinine Clr Calc Pharmacy 82.2 ml/min; Est GFR (African American) 84.1 ml/min; Est GFR (Non-African American) 72.6 ml/min; Magnesium 2.1 mg/dl (1.7-2.4); Potassium 3.6 mmol/L (3.5-5.1)
[2021-11-11] MEDS: RESTASIS - ORDER AWAITING ACTION SCH ×3 (06:48→23:30)
[2021-11-11] MEDS ORDERED: FLUTICASONE FUROATE 200MCG 14 PUFFS/INHALER INH SCH (09:00)
[2021-11-11] MEDS ORDERED: FLUTICASONE/VILANTEROL 200/25MCG 14 PUFFS/INHALER INH SCH (09:00)
[2021-11-11] MEDS ORDERED: UMECLIDINIUM BROMIDE 62.5MCG/BLISTER 7 PUFFS/INHALER INH SCH (09:00)
[2021-11-11] MEDS: FLUTICASONE PROPIONATE NA SPR 16 GM BTL SCH (09:12)
[2021-11-11] MEDS: DULoxetine HCL 30 MG CAP PO SCH ×2 (09:13→20:17)
[2021-11-11] MEDS: ENOXAPARIN INJ 40 MG/0.4 ML SYR SQ SCH (09:13)
[2021-11-11] MEDS: FEXOFENADINE HCL 180 MG TAB PO SCH (09:13)
[2021-11-11] MEDS: DOXYCYCLINE HYCLATE 100 MG CAP PO SCH ×2 (09:13→20:15)
[2021-11-11] MEDS: PANTOprazole 40 MG TAB PO SCH ×2 (09:14→20:15)
[2021-11-11] MEDS: TOPIRAMATE 25 MG TAB PO SCH ×2 (09:14→20:17)
[2021-11-11] MEDS: LINACLOTIDE 145 MCG CAPSULE PO SCH (09:14)
[2021-11-11] MEDS: oxyCODONE HCL IR 5 MG TAB (IMMEDIATE RELEASE) PO PRN ×2 (10:56→19:59)
[2021-11-11] MEDS: ALBUT/IPRATROP 3MG/0.5MG NEB 3 ML VIAL NEB SCH ×4 (10:59→22:52)
--- NOTE | 2021-11-11 12:13 | Electrocardiogram Report ---
Test Reason : Blood Pressure : / mmHG Vent. Rate : 095 BPM Atrial Rate : 095 BPM P-R Int : 152 ms QRS Dur : 088 ms QT Int : 346 ms P-R-T Axes : 062 051 066 degrees QTc Int : 434 ms Poor data quality, interpretation may be adversely affected Normal sinus rhythm Nonspecific T wave abnormality Abnormal ECG No previous ECGs available Confirmed by Florentino Nunez ([id number]) on 11/11/2021 12:13:05 PM Referred By: REFERRED SELF Confirmed By:Florentino Nunez
[2021-11-11] MEDS: LACTATED RINGER'S 1,000 ML IV SCH ×2 (13:47→23:29)
--- NOTE | 2021-11-11 13:48 | Communication Note ---
Date of Service: November 11, 2021 Patient seen and examined at bedside today. She was lying down on the bed. She complained of generalized weakness and fatigue. She says all the symptoms started yesterday morning when she started to have chills and shortness of breath. Her cough was productive yesterday with whitish sputum; no sputum production today. She denies any recent traveling or exposure to anyone who was sick. She reported that her last episode of pneumonia was 8 years ago. She had similar symptoms at that time. Her T-max since admission is 38.9. She has been afebrile since. Blood pressure is on the lower side. She is currently receiving normal saline at 100 cc/h. On examination-decreased breath sound at left lung base. Plan: -Continue on ceftriaxone and doxycycline. -Continuing IV fluids at 100 cc/h -Started on scheduled DuoNebs every 4 hours. -Continue to monitor for respiratory and hemodynamic status.
[2021-11-11] MEDS: LIDOCAINE 5% 1 PATCH TD SCH (17:56)
[2021-11-11] MEDS: lamoTRIgine 25 MG TAB PO SCH (20:15)
[2021-11-11] MEDS: MONTELUKAST SODIUM 10 MG TABLET PO SCH (20:16)
[2021-11-11] MEDS: MELATONIN 3 MG TAB PO SCH (20:16)
[2021-11-11] MEDS: PRAVASTATIN SOD 40 MG TAB PO SCH (20:16)
[2021-11-11] MEDS: GABAPENTIN 300 MG CAP PO SCH (20:17)
[2021-11-11] MEDS ORDERED: LURASIDONE HCL 40 MG TAB PO SCH (21:00)
[2021-11-11] MEDS: cefTRIAXone SODIUM 2,000 MG/70 ML BAG IV SCH (23:25)
[2021-11-12] MEDS: ALBUT/IPRATROP 3MG/0.5MG NEB 3 ML VIAL NEB SCH ×6 (04:23→23:28)
[2021-11-12] MEDS: RESTASIS - ORDER AWAITING ACTION SCH ×3 (08:25→20:13)
[2021-11-12] MEDS: BECLOMETHASONE DIP HFA 80 MCG 8.7G INH INH SCH ×2 (08:34→20:06)
[2021-11-12] MEDS: SALMETEROL INH SCH ×2 (08:35→20:07)
[2021-11-12] MEDS: FLUTICASONE INH SCH ×2 (08:35→20:07)
[2021-11-12] MEDS: TIOTROPIUM BROMIDE 5 PUFF/90 MCG INH INH SCH (08:35)
[2021-11-12] MEDS: DOXYCYCLINE HYCLATE 100 MG CAP PO SCH ×2 (08:36→20:04)
[2021-11-12] MEDS: DULoxetine HCL 30 MG CAP PO SCH ×2 (08:37→20:04)
[2021-11-12] MEDS: FEXOFENADINE HCL 180 MG TAB PO SCH (08:37)
[2021-11-12] MEDS: FLUTICASONE PROPIONATE NA SPR 16 GM BTL SCH (08:37)
[2021-11-12] MEDS: LIDOCAINE 5% 1 PATCH TD SCH (08:38)
[2021-11-12] MEDS: LINACLOTIDE 145 MCG CAPSULE PO SCH (08:38)
[2021-11-12] MEDS: PANTOprazole 40 MG TAB PO SCH ×2 (08:38→20:04)
[2021-11-12] MEDS: TOPIRAMATE 25 MG TAB PO SCH ×2 (08:38→20:05)
[2021-11-12] MEDS: LACTATED RINGER'S 1,000 ML IV SCH (08:39)
[2021-11-12] MEDS: ENOXAPARIN INJ 40 MG/0.4 ML SYR SQ SCH (08:39)
[2021-11-12 08:51] LABS: Basophils # (auto) 0.01 K/uL (0-0.2); Basophils % (auto) 0.1 %; Hematocrit (blood only) 33.2 % (34.1-44.9); Hemoglobin 10.5 g/dl (12.0-16.0); Immature Granulocytes # (auto) 0.15 K/uL (0.00-0.02); Immature Granulocytes % (auto) 1.2 %; Lymphocytes % (auto) 7.8 %; Mean Corpuscular Hemoglobin 29.2 pg (25.0-34.0); Mean Corpuscular Hgb Conc 31.6 g/dL (32.0-36.0); Mean Corpuscular Volume 92.2 fL (80.0-100.0); Mean Platelet Volume 9.2 fL (9.4-12.3); Monocytes # (auto) 0.88 K/uL (0.24-0.82); Monocytes % (auto) 6.8 %; Neutrophils # (auto) 10.85 K/uL (1.4-6.5); Neutrophils % (auto) 84.1 %; Platelet Count 177 K/uL (130-400); RDW Coefficient of Variation 14.5 % (11.5-14.5); RDW Standard Deviation 49.5 fL (36.4-46.3); White Blood Count 12.89 K/ul (4.8-10.8)
[2021-11-12 09:20] LABS: BUN Creatinine Ratio 11.3 (10-20); Calcium 8.3 mg/dl (8.5-10.1); Creatinine Clr Calc Pharmacy 94.9 ml/min; Est GFR (African American) 99.6 ml/min; Potassium 3.9 mmol/L (3.5-5.1)
--- NOTE | 2021-11-12 14:16 | Hospitalist Progress Note ---
Date of Service November 12, 2021 Assessment & Plan (1) Severe sepsis: Plan: SIRS plus hypoxemia Secondary to community-acquired pneumonia Febrile to 38.9 C on admission. Afebrile since. Blood pressure on the lower side. Oxygen requirement down trended from 2 L to room air. WBC down trended from 19-12 CTA chest shows dense left lower lobe consolidation suggestive of pneumonia. No PE. Plan; Continue on ceftriaxone and doxycycline day 2 -Continue on duo nebs every 4 hours. 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 Chronic conditions: bipolar disorder, at baseline on multiple medications migraine, headache somewhat worse than usual due to illness as per patient past tobacco abuse DVT prophylaxis. Lovenox subcu Full code Home after resolution of medical issues Admission and Anticipated Discharge Date Admission Date: November 11, 2021 Subjective Patient seen and examined at bedside. She is sitting up on the chair; not in any distress. She feels that her pleuritic pain on the left chest is better compared to presentation. She is saturating at 95% in room air. Review of Systems Review of Systems: All systems reviewed & are unremarkable except as noted in Subjective Physical Exam Physical Exam: GENERAL: Alert, oriented x3 SKIN: Normal color, warm HEENT: [place] palpebral conjunctivae, no ptosis, dry buccal mucosa, nasal cannula in place NECK : Supple, short neck, no tenderness CHEST : Decreased breath sounds on left lower base, no tenderness HEART : RRR, no obvious murmurs ABDOMEN: Some distention, nontender EXTREMITIES : Minimal LE swelling, no LE tenderness, no other conspicuous deformities noted NEUROLOGIC : Coherent, no facial asymmetry, no other gross focality Results & Data Results & Data ([facility]) Vital Signs (Past 12 Hours) Vital Signs Temp Pulse Pulse Resp BP BP Pulse Ox 11/12/21 11:41 36.8 C 93 H 20 94/56 L 98 11/12/21 10:23 93 H 11/12/21 10:23 11/12/21 10:23 81 18 97 11/12/21 07:17 36.7 C 92 H 18 87/50 L 98 11/12/21 07:14 72 18 96 11/12/21 04:23 93 H 20 96 11/12/21 03:41 36.7 C 84 16 106/64 96 O2 Del Method O2 Flow Rate FiO2 11/12/21 11:41 Room Air 11/12/21 10:23 11/12/21 10:23 Nasal Cannula 2 11/12/21 10:23 CPAP 21 11/12/21 07:17 BiPAP 11/12/21 07:14 CPAP 2 11/12/21 04:23 CPAP 2 11/12/21 03:41 BiPAP Laboratory Results Laboratory Results WBC 12.89 K/ul (4.8-10.8) H 11/12/21 07:44 RBC 3.60 M/uL (3.93-5.22) L 11/12/21 07:44 Hgb 10.5 g/dl (12.0-16.0) L 11/12/21 07:44 Hct 33.2 % (34.1-44.9) L 11/12/21 07:44 MCV 92.2 fL (80.0-100.0) 11/12/21 07:44 MCH 29.2 pg (25.0-34.0) 11/12/21 07:44 MCHC 31.6 g/dL (32.0-36.0) L 11/12/21 07:44 RDW Std Deviation 49.5 fL (36.4-46.3) H 11/12/21 07:44 RDW Coeff of Mariia 14.5 % (11.5-14.5) 11/12/21 07:44 Plt Count 177 K/uL (130-400) 11/12/21 07:44 MPV 9.2 fL (9.4-12.3) L 11/12/21 07:44 Immature Gran % (Auto) 1.2 % 11/12/21 07:44 Neut % (Auto) 84.1 % 11/12/21 07:44 Lymph % (Auto) 7.8 % 11/12/21 07:44 [place] % (Auto) 6.8 % 11/12/21 07:44 Eos % (Auto) 0.0 % 11/12/21 07:44 Baso % (Auto) 0.1 % 11/12/21 07:44 Neut # (Auto) 10.85 K/uL (1.4-6.5) H 11/12/21 07:44 Lymph # (Auto) 1.00 K/uL (1.2-3.4) L 11/12/21 07:44 [place] # (Auto) 0.88 K/uL (0.24-0.82) H 11/12/21 07:44 Eos # (Auto) 0.00 K/uL (0-0.50) 11/12/21 07:44 Baso # (Auto) 0.01 K/uL (0-0.2) 11/12/21 07:44 Immature Gran # (Auto) 0.15 K/uL (0.00-0.02) H 11/12/21 07:44 PT 11.5 Seconds (9.0-12.0) 11/10/21 18:20 INR 1.1 (0.9-1.1) 11/10/21 18:20 APTT 27.7 Seconds (21.0-31.0) 11/10/21 18:20 PTT Ratio 1.0 11/10/21 18:20 VBG pH 7.38 (7.36-7.41) 11/10/21 23:42 VBG pCO2 35 mmHg (38-50) L 11/10/21 23:42 VBG pO2 36 mmHg 11/10/21 23:42 VBG HCO3 21 mmol/L 11/10/21 23:42 VBG O2 Saturation 68.7 % 11/10/21 23:42 VBG Base Excess -3.8 mEq/L 11/10/21 23:42 Sodium 136 mmol/L (136-145) 11/12/21 07:44 Potassium 3.9 mmol/L (3.5-5.1) 11/12/21 07:44 Chloride 109 mmol/L (98-107) H 11/12/21 07:44 Carbon Dioxide 22 mmol/L (21-32) 11/12/21 07:44 Anion Gap 5 (3-11) 11/12/21 07:44 BUN 9 mg/dl (6-23) 11/12/21 07:44 Creatinine 0.80 mg/dl (0.6-1.2) 11/12/21 07:44 Est Cr Clr Drug Dosing 94.9 ml/min 11/12/21 07:44 Est GFR ( Amer) 99.6 ml/min 11/12/21 07:44 Est GFR (Non-Af Amer) 86.0 ml/min 11/12/21 07:44 BUN/Creatinine Ratio 11.3 (10-20) 11/12/21 07:44 Glucose 101 mg/dl (70-99(Fasting)) H 11/12/21 07:44 POC Glucose 150 mg/dl (70-99) H 11/11/21 01:51 Lactate 1.0 mmol/L (0.4-2.0) 11/10/21 23:55 Calcium 8.3 mg/dl (8.5-10.1) L 11/12/21 07:44 Magnesium 2.1 mg/dl (1.7-2.4) 11/11/21 05:49 Total Bilirubin 0.9 mg/dl (0.2-1.0) 11/10/21 18:20 AST 17 U/L (13-39) 11/10/21 18:20 ALT 16 U/L (7-52) 11/10/21 18:20 Alkaline Phosphatase 52 U/L (34-104) 11/10/21 18:20 Troponin I High Sens 4.2 pg/ml (0-14) 11/10/21 18:20 Total Protein 6.4 gm/dl (6.0-8.3) 11/10/21 18:20 Albumin 4.0 gm/dl (3.4-5.0) 11/10/21 18:20 Globulin 2.4 gm/dl (2.5-4.0) L 11/10/21 18:20 Albumin/Globulin Ratio 1.7 (0.9-2) 11/10/21 18:20 Procalcitonin 1.93 ng/ml (0-0.5) H 11/10/21 23:55 TSH 0.986 uIu/ml (0.300-4.500) 11/10/21 23:55 Urine Color Yellow 11/10/21 23:10 Urine Appearance Clear (Clear) 11/10/21 23:10 Urine pH 7.5 (4.5-7.5) 11/10/21 23:10 Ur Specific [place] 1.038 (1.000-1.030) H 11/10/21 23:10 Urine Protein Negative (Negative) 11/10/21 23:10 Urine Glucose (UA) Negative (Negative) 11/10/21 23:10 Urine Ketones Negative (Negative) 11/10/21 23:10 Urine Blood Negative (Negative) 11/10/21 23:10 Urine Nitrite Negative (Negative) 11/10/21 23:10 Urine Bilirubin Negative (Negative) 11/10/21 23:10 Urine Urobilinogen Negative (Negative) 11/10/21 23:10 Ur Leukocyte Esterase Trace (Negative) H 11/10/21 23:10 Urine WBC (Auto) 1-5 /hpf (0-5) 11/10/21 23:10 Urine RBC (Auto) 0-4 /hpf (0-4) 11/10/21 23:10 U Hyaline Cast (Auto) 0 /lpf (0-5) 11/10/21 23:10 U Epithel Cells (Auto) >30 /lpf (0-5) H 11/10/21 23:10 Urine Bacteria (Auto) Negative (Negative) 11/10/21 23:10 Nasal Screen MRSA (PCR) Negative (Negative) 11/11/21 12:45 [place] < 0.1 mmol/L (0.6-1.2) L 11/10/21 23:55 SARS-CoV-2 (PCR) NEGATIVE (Negative) 11/10/21 21:00 Impressions Chest CTA 11/10/21 17:51 CT ANGIOGRAPHY OF THE CHEST, PULMONARY EMBOLUS PROTOCOL CLINICAL HISTORY: Covid-19, left side chest pain, shortness of breath COMPARISON STUDY: No previous studies for comparison. TECHNIQUE: Following IV administration of 77 mL of Optiray, helical axial images of the chest were obtained utilizing the pulmonary embolus protocol. Maximal intensity projections and sagittal and coronal reformats were viewed on an independent 3D workstation. IV contrast was administered without complication. Automated exposure control was utilized for the study. A dose lowering technique was utilized adhering to the principles of ALARA. CT DOSE: 525.52 mGy.cm FINDINGS: No pulmonary emboli are identified. There is no thoracic aortic dissection. Size of the heart is normal. There is no pericardial effusion. Note is made of dense left lower lobe consolidation. There is mild left lower lobe volume loss. No central obstructing mass is identified. No cavitation is present. There is no associated pleural effusion. Mild airspace opacity within the lingula is also noted. Right lung is clear. No acute fracture or suspicious lesion within the visualized bony thorax. Size of the spleen is at the upper limits of normal. IMPRESSION: 1. No pulmonary emboli identified. 2. Dense left lower lobe consolidation with mild lower lobe volume loss. This is highly suggestive of pneumonia. Mild airspace opacity within the lingula. Radiographic follow-up to ensure resolution is recommended. ACT 112: Negative or not required by law. Electronically signed by: Ryan Grimes M.D. 11/10/2021 8:16 PM
[2021-11-12] MEDS ORDERED: LURASIDONE HCL 40 MG TAB PO SCH (16:30)
[2021-11-12] MEDS: lamoTRIgine 25 MG TAB PO SCH (20:04)
[2021-11-12] MEDS: MELATONIN 3 MG TAB PO SCH (20:04)
[2021-11-12] MEDS: PRAVASTATIN SOD 40 MG TAB PO SCH (20:05)
[2021-11-12] MEDS: MONTELUKAST SODIUM 10 MG TABLET PO SCH (20:05)
[2021-11-12] MEDS: GABAPENTIN 300 MG CAP PO SCH (20:05)
[2021-11-12] MEDS: cefTRIAXone SODIUM 2,000 MG/70 ML BAG IV SCH (23:42)
[2021-11-13] MEDS: ALBUT/IPRATROP 3MG/0.5MG NEB 3 ML VIAL NEB SCH ×4 (02:59→15:02)
[2021-11-13 07:06] LABS: Basophils # (auto) 0.01 K/uL (0-0.2); Basophils % (auto) 0.1 %; Hematocrit (blood only) 34.1 % (34.1-44.9); Hemoglobin 10.8 g/dl (12.0-16.0); Immature Granulocytes # (auto) 0.12 K/uL (0.00-0.02); Immature Granulocytes % (auto) 1.6 %; Lymphocytes # (auto) 0.87 K/uL (1.2-3.4); Lymphocytes % (auto) 11.8 %; Mean Corpuscular Hemoglobin 28.9 pg (25.0-34.0); Mean Corpuscular Hgb Conc 31.7 g/dL (32.0-36.0); Mean Corpuscular Volume 91.2 fL (80.0-100.0); Mean Platelet Volume 9.2 fL (9.4-12.3); Monocytes # (auto) 0.59 K/uL (0.24-0.82); Neutrophils # (auto) 5.81 K/uL (1.4-6.5); Neutrophils % (auto) 78.5 %; Platelet Count 203 K/uL (130-400); RDW Coefficient of Variation 14.3 % (11.5-14.5); RDW Standard Deviation 48.1 fL (36.4-46.3); Red Blood Count 3.74 M/uL (3.93-5.22)
[2021-11-13 07:28] LABS: BUN Creatinine Ratio 16.2 (10-20); Calcium 8.7 mg/dl (8.5-10.1); Creatinine Clr Calc Pharmacy 102.5 ml/min; Est GFR (African American) 109.5 ml/min; Est GFR (Non-African American) 94.5 ml/min
[2021-11-13] MEDS: RESTASIS - ORDER AWAITING ACTION SCH ×2 (08:12→17:07)
[2021-11-13] MEDS: FLUTICASONE INH SCH (08:13)
[2021-11-13] MEDS: SALMETEROL INH SCH (08:13)
[2021-11-13] MEDS: FLUTICASONE PROPIONATE NA SPR 16 GM BTL SCH (08:15)
[2021-11-13] MEDS: BECLOMETHASONE DIP HFA 80 MCG 8.7G INH INH SCH (08:15)
[2021-11-13] MEDS: TIOTROPIUM BROMIDE 5 PUFF/90 MCG INH INH SCH (08:16)
[2021-11-13] MEDS: PANTOprazole 40 MG TAB PO SCH (08:17)
[2021-11-13] MEDS: LIDOCAINE 5% 1 PATCH TD SCH (08:17)
[2021-11-13] MEDS: LINACLOTIDE 145 MCG CAPSULE PO SCH (08:18)
[2021-11-13] MEDS: FEXOFENADINE HCL 180 MG TAB PO SCH (08:28)
[2021-11-13] MEDS: TOPIRAMATE 25 MG TAB PO SCH (08:28)
[2021-11-13] MEDS: DULoxetine HCL 30 MG CAP PO SCH (08:28)
[2021-11-13] MEDS: DOXYCYCLINE HYCLATE 100 MG CAP PO SCH (08:28)
[2021-11-13] MEDS: ENOXAPARIN INJ 40 MG/0.4 ML SYR SQ SCH (08:30)
--- NOTE | 2021-11-13 13:20 | Discharge Summary ---
Date of Service November 13, 2021 Admission HPI Per Admitting Provider History obtained from patient and records. Medical history significant for hypertension, bipolar disorder, bronchial asthma , migraine, past tobacco abuse. Patient started not feeling well yesterday, cough productive of junky sputum associated with headaches. Some shortness of breath with chest pain from coughing. No aspiration. Not as much wheezing as usual asthma attack. Usual migraine headache. Patient not sure about sick contacts due to her work at the [employer]. Patient has not received COVID-19 vaccination but was intending to get her first shot today. O2 sats 80s at 1 point during ER stay. Patient given Ceftriaxone and Azithromycin at the ER for pneumonia. Medical History as above Surgical History : Sinus surgery, tonsillectomy Family History : Hypertension Personal/Social history : Past tobacco abuse, no EtOH intake, [employer] employee Admission Exam Per Admitting Provider GENERAL: Slightly uncomfortable, obese, looks older than stated age, no respiratory distress SKIN: Normal color, warm HEENT: [place] palpebral conjunctivae, no ptosis, dry buccal mucosa, nasal cannula in place NECK : Supple, short neck, no tenderness CHEST : Decreased breath sounds, no tenderness HEART : RRR, no obvious murmurs ABDOMEN: Some distention, nontender EXTREMITIES : Minimal LE swelling, no LE tenderness, no other conspicuous deformities noted NEUROLOGIC : Coherent, no facial asymmetry, no other gross focality Principal Diagnosis Community Acquired Pneumonia Discharge Exam GENERAL: Alert, oriented x3 SKIN: Normal color, warm HEENT: [place] palpebral conjunctivae, no ptosis, dry buccal mucosa, nasal cannula in place NECK : Supple, short neck, no tenderness CHEST : Crackles present on left lower base. HEART : RRR, no obvious murmurs ABDOMEN: Some distention, nontender EXTREMITIES : Minimal LE swelling, no LE tenderness, no other conspicuous deformities noted NEUROLOGIC : Coherent, no facial asymmetry, no other gross focality Discharge Data Allergies Allergy/AdvReac Type Severity Reaction Status Date / Time Sulfa (Sulfonamide Allergy Unknown hands and Verified 11/10/21 23:41 Antibiotics) feet get itchy Consultations 11/10/21 23:00 ED Decision to Admit Stat Ordered Studies 11/10/21 17:51 CT angio chest PE protocol Stat Hospital Course (1) Severe sepsis: (2) Pneumonia: Plan Patient is a 51-year-old female with past medical history of hypertension, bronchial asthma, bipolar disorder, migraine presented to the ED with complaint of cough and pleuritic chest pain. CT angio was done in the ED which showed left lower lobe consolidation; no PE. Patient was admitted to telemetry floor for severe sepsis secondary to community-acquired pneumonia. She was started on IV ceftriaxone and doxycycline. Pleuritic chest pain was treated with analgesics and lidocaine patch. Patient was weaned off of the supplemental oxygen and was back to room air on the day of the discharge. She was given prescription for cefdinir and doxycycline for 5 more days. She was instructed to follow-up with her primary care doctor and pulmonology as outpatient. Total Time Total Time Spent Total Time Spent (In Minutes): 35 Total Time Includes: Examination of the Patient, Discharge Planning, Medication Reconciliation, Communication With Other Providers and Other Discharge Plan Discharge Items Patient Disposition: Home - Self-Care Reason For Visit: RESP FAILURE, SEPSIS Discharge Diagnosis: Severe sepsis secondary to community acquired pneumonia Activity: Resume your previous activity Non-emergency contact: Primary Care Provider Call non-emergency contact if: you have any medication questions and your symptoms worsen Follow-up/Referrals: Geoff Hagen MD [Outside Practitioners] - 11/17/21 9:45 am Diet: Regular Addtl Attending Provider Instructions: You were admitted to the hospital with community-acquired pneumonia. You are prescribed the following antibiotics: 1) Cefdinir 300 mg twice daily for 5 days 2) Doxycycline 100 mg twice daily for 5 days Please follow-up with your primary care doctor and make appointment with your lung doctor for follow-up. Pending Studies at Discharge: No Stand-Alone Forms: My [facility] [address], Work/School Release, Smoking Cessation Medications and DC Order Prescriptions: New doxycycline hyclate 100 mg Capsule 100 mg PO BID 5 Days Qty: 10 0RF cefdinir 300 mg capsule 300 mg PO BID 5 Days Qty: 10 0RF Continued topiramate [Topamax] 25 mg tablet 25 mg PO AMHS lamotrigine [Lamictal] 25 mg tablet 25 mg PO HS lisinopril 10 mg tablet 10 mg PO QAM montelukast [Singulair] 10 mg tablet 10 mg PO HS gabapentin 100 mg capsule 300 mg PO HS Vyvanse 60 mg capsule 60 mg PO QAM ipratropium-albuterol 0.5 mg-3 mg(2.5 mg base)/3 mL solution for nebulization 3 ml INHALATION Q4 PRN (Reason: as directed) pravastatin 40 mg tablet 40 mg PO HS fexofenadine [Pilar Allergy] 180 mg tablet 180 mg PO QAM albuterol sulfate 90 mcg/actuation HFA aerosol inhaler 2 puff INHALATION Q6 PRN (Reason: as directed) fluticasone propionate 50 mcg/actuation spray,suspension 2 spray INTRANASAL DAILY pantoprazole [Protonix] [address] for susp in packet 40 mg PO BID Latuda 80 mg tablet 80 mg PO HS Linzess 290 mcg capsule 290 mcg PO QAM Spiriva Respimat 2.5 mcg/actuation mist 2 puff INHALATION QAM Restasis MultiDose 0.05 % drops 1 drp ophthalmic (eye) BID Qvar RediHaler 80 mcg/actuation HFA aerosol breath activated 2 inh INHALATION BID sumatriptan succinate 50 mg tablet 50 mg PO UD PRN (Reason: Migraine Headache) epinephrine 0.3 mg/0.3 mL auto-injector 0.3 ml IM UD PRN (Reason: Allergic Reaction) duloxetine 30 mg capsule,delayed release(DR/EC) 30 mg PO BID fluticasone propion-salmeterol [Advair Diskus] 500-50 mcg/dose Blister With Device 1 inh INHALATION BID Fasenra 30 mg/mL Syringe 30 mg SUBCUT .EVERY 2 MONTHS Rx Instructions: due end of october 2021 melatonin 10 mg Tablet Extended Release 10 mg PO HS Cbd Extendend Release Tablet 10 mg PO QAM Discharge Orders: Discharge Order (Routine); Ordered 11/13/21 Ordered By: Fran Landeros Admission Data Admit Date/Time: 11/11/21 01:02 Attending Provider: Fran Landeros Admit Provider: Abner Adame Primary Care Provider: Lino Huynh Other Providers: Abner Adame
== END 2021-11-13 17:11 | disposition home or self-care (01) | DRG 871 ==
LOC: ED 17:36 → 2N 11-11 01:02